=== PATIENT | female | born 1980 | race Caucasian/White ===

== ENCOUNTER 2019-01-12 18:38 | Emergency (ER) | payer OTHER ==
[~2019-01-12] VITALS: Ht 152.4 cm; Wt 63.5 kg
[2019-01-12] MEDS ORDERED: SODIUM CHLORIDE 0.9% 1000ML 1,000 ML IV STA ×2 (18:45)
[2019-01-12] MEDS ORDERED: METHYLPREDNISOLONE SOD SUCC 125 MG/2ML VIAL IV STA (18:45)
[2019-01-12] MEDS ORDERED: KETOROLAC TROMETHAMINE 30 MG/ML VIAL IV NR (18:45)
[2019-01-12] MEDS ORDERED: ONDANSETRON HCL INJ 2MG/ML 2ML 2 MG/ML VIAL IV NR (18:45)
[2019-01-12 19:26] LABS: BASOPHILS # (AUTO) 0.1 (0.0-0.1); BASOPHILS % 0.4 % (0.0-1.0); EOSINOPHILS # (AUTO) 0.1 (0.0-0.4); EOSINOPHILS % 0.4 % (0.0-6.0); HEMATOCRIT 41.7 % (34.2-44.1); HEMOGLOBIN 14.3 g/dL (12.0-16.0); LYMPHOCYTES # (AUTO) 0.7 (1.0-3.2); LYMPHOCYTES % 4.5 % (18.0-39.1); MEAN CORPUSCULAR HEMOGLOBIN 31.6 pg (28-32); MEAN CORPUSCULAR HGB CONC 34.3 g/dL (31-35); MEAN CORPUSCULAR VOLUME 92.3 fL (81-99); MONOCYTES # (AUTO) 1.6 (0.2-0.8); MONOCYTES % 9.8 % (4.4-11.3); NEUTROPHILS # (AUTO) 13.9 (2.1-6.9); NEUTROPHILS % 84.5 % (38.7-80.0); PLATELET COUNT 259 x10e3/uL (140-360); RED BLOOD COUNT 4.52 x10e6/uL (3.6-5.1); RED CELL DISTRIBUTION WIDTH 12.9 % (11.7-14.4)
[2019-01-12 19:27] LABS: BILIRUBIN,URINE NEGATIVE (NEGATIVE); CLARITY,URINE CLEAR (CLEAR); COLOR,URINE YELLOW (YELLOW); KETONES,URINE NEGATIVE (NEGATIVE); LEUKOCYTE ESTERASE ,URINE SMALL (NEGATIVE); NITRITE,URINE NEGATIVE (NEGATIVE); PROTEIN,URINE DIPSTICK NEGATIVE (NEGATIVE); URINE UROBILINOGEN 0.2 mg/dL (0.2 - 1)
[2019-01-12 19:29] LABS: PREGNANCY TEST, URINE NEGATIVE (NEGATIVE)
--- NOTE | 2019-01-12 19:32 | NUR ---
rt notified of nebs
[2019-01-12 19:40] LABS: BACTERIA,URINE MANY /HPF; EPITHELIAL CELLS,URINE RARE /LPF; RBC,URINE 0-5 /HPF (0-5); WBC,URINE (MAN) 0-5 /HPF (0-5)
[2019-01-12 19:47] LABS: ALANINE AMINOTRANSFERASE 46 IU/L (0-55); ALBUMIN 3.6 g/dL (3.5-5.0); ALKALINE PHOSPHATASE 68 IU/L (40-150); ANION GAP 17.4 mmol/L (8-16); BLOOD UREA NITROGEN 13 mg/dL (7-26); BUN/CREATININE RATIO 16 (6-25); CALCIUM 9.3 mg/dL (8.4-10.2); CARBON DIOXIDE 24 mmol/L (22-29); CHLORIDE 100 mmol/L (98-107); CREATINE KINASE 62 IU/L (29-168); CREATININE, SERUM 0.81 mg/dL (0.57-1.11); EST GLOMERULAR FILTRATION RATE > 60 ML/MIN (60-); GLUCOSE 111 mg/dL (74-118); POTASSIUM 3.4 mmol/L (3.5-5.1); SODIUM 138 mmol/L (136-145)
[2019-01-12] MEDS: IPRATROPIUM BROMIDE 0.02% 2.5 ML NEB NEB STA ×2 (20:15→20:30)
[2019-01-12] MEDS: ALBUTEROL SULF 0.083% NEB SOLN 3 ML NEB NEB STA ×2 (20:15→20:30)
--- NOTE | 2019-01-12 20:24 | Diagnostic Imaging Report ---
EXAMINATION: CHEST 2 VIEWS INDICATION: Back pain when breathing, history of asthma, vomiting ^ORDER PLACED BY MD ^Y COMPARISON: None FINDINGS: PA and lateral views TUBES and LINES: None. LUNGS: Lungs are well inflated. Small focus of airspace disease in the posterior left lower lobe PLEURA: No pleural effusion or pneumothorax. HEART AND MEDIASTINUM: The cardiomediastinal silhouette is unremarkable. BONES AND SOFT TISSUES: No focal osseous lesions. Soft tissues are unremarkable. UPPER ABDOMEN: No free air under the diaphragm. IMPRESSION: Small focus of airspace disease in the posterior left lower lobe suggestive of infiltrate or atelectasis. Signed by: Dr. Lenny Monroe MD on 01/12/2019 8:21 PM
[2019-01-12 20:27] LABS: LYMPHOCYTES % (MANUAL) 6 % (19-48); MONOCYTES % (MANUAL) 6 % (3.4-9.0); NEUTROPHILS % (MANUAL) 87 % (40-74); PLATELET ESTIMATE ADEQUATE; PLATELET MORPHOLOGY COMMENT NORMAL; RBC MORPHOLOGY COMMENT NORMAL
[2019-01-12] MEDS ORDERED: CEFTRIAXONE SOD 1 GM VIAL IV ONE (20:45)
[2019-01-12] MEDS ORDERED: DIATRIZOATE MEGL/DIATRIZOA SOD 30 ML BTL PO ONE (20:46)
--- NOTE | 2019-01-12 20:48 | NUR ---
NEBS GOING AT THIS TIME
[2019-01-12] MEDS ORDERED: CEFTRIAXONE SOD 1 GM/NS 50 ML 50 ML IV ONE (20:53)
[2019-01-12] MEDS ORDERED: DYMISTA NASAL S23 GM (21:05)
[2019-01-12] MEDS ORDERED: MONTELUKAST SOD10 MG PO (21:05)
[2019-01-12] MEDS ORDERED: ALBUTEROL2.5 MG/3 M NEB (21:05)
[2019-01-12] MEDS ORDERED: NEXIUM20 MG PO (21:05)
[2019-01-12] MEDS ORDERED: CETIRIZINE HCL10 MG PO (21:05)
[2019-01-12] MEDS ORDERED: SPIRIVA INH (21:05)
[2019-01-12] MEDS ORDERED: BREO ELLIPTA INH (21:05)
[2019-01-12] MEDS ORDERED: JUNEL1 EAC1 PO (21:05)
[2019-01-12] MEDS ORDERED: HYDROCODONE/APAP 10MG-325MG TAB PO ONE (21:45)
== END 2019-01-12 21:55 | disposition home or self-care (01) ==
LOC: ER 18:38
DX: R05 Cough (principal); J15.9 Unspecified bacterial pneumonia; R11.2 Nausea with vomiting, unspecified; J45.909 Unspecified asthma, uncomplicated
CPT/HCPCS: 36415; 71046; 80053; 81001; 81025; 82550; 82553; 84484; 85025; 94640; 96374; 96375; 99284; J0696; J1885; J2405; J2930; J7030

== ENCOUNTER 2021-10-27 11:30 | Emergency (ER) | payer OTHER ==
[~2021-10-27] VITALS: Ht 152.4 cm; Wt 63.5 kg
[~2021-10-27 11:30] MED LIST: ALBUTEROL2.5 MG/3 M NEB; BREO ELLIPTA INH; CETIRIZINE HCL10 MG PO; DYMISTA NASAL S23 GM; JUNEL1 EAC1 PO; MONTELUKAST SOD10 MG PO; NEXIUM20 MG PO; SPIRIVA INH
[2021-10-27] MEDS ORDERED: SODIUM CHLORIDE 0.9% 1000ML 1,000 ML IV STA (11:47)
[2021-10-27 11:55] LABS: BASOPHILS # (AUTO) 0.1 (0.0-0.1); BASOPHILS % 1.2 % (0.0-1.0); EOSINOPHILS # (AUTO) 0.1 (0.0-0.4); EOSINOPHILS % 2.7 % (0.0-6.0); HEMATOCRIT 42.6 % (34.2-44.1); HEMOGLOBIN 14.2 g/dL (12.0-16.0); LYMPHOCYTES # (AUTO) 1.6 (1.0-3.2); LYMPHOCYTES % 32.7 % (18.0-39.1); MEAN CORPUSCULAR HEMOGLOBIN 29.3 pg (28-32); MEAN CORPUSCULAR HGB CONC 33.3 g/dL (31-35); MEAN CORPUSCULAR VOLUME 87.8 fL (81-99); MONOCYTES # (AUTO) 0.7 (0.2-0.8); MONOCYTES % 15.1 % (4.4-11.3); NEUTROPHILS # (AUTO) 2.4 (2.1-6.9); NEUTROPHILS % 48.1 % (38.7-80.0); PLATELET COUNT 288 x10e3/uL (140-360); RED BLOOD COUNT 4.85 x10e6/uL (3.6-5.1)
[2021-10-27] MEDS ORDERED: ONDANSETRON HCL INJ 2MG/ML 2ML 2 MG/ML VIAL IV PRN (12:00)
[2021-10-27 12:01] LABS: BACTERIA,URINE RARE /HPF; CLARITY,URINE SL CLOUDY (CLEAR); COLOR,URINE YELLOW (YELLOW); EPITHELIAL CELLS,URINE FEW /LPF; KETONES,URINE >=160 (NEGATIVE); LEUKOCYTE ESTERASE ,URINE NEGATIVE (NEGATIVE); MUCUS,URINE FEW (RARE); NITRITE,URINE NEGATIVE (NEGATIVE); PROTEIN,URINE DIPSTICK 1+ (NEGATIVE); URINE UROBILINOGEN 1 mg/dL (0.2 - 1)
[2021-10-27 12:22] LABS: ALBUMIN 3.3 g/dL (3.5-5.0); ALBUMIN/GLOBULIN RATIO 0.7 (0.8-2.0); ANION GAP 16.5 mmol/L (8-16); CALCIUM 9.4 mg/dL (8.4-10.2); CREATININE, SERUM 0.83 mg/dL (0.57-1.11); POTASSIUM 3.5 mmol/L (3.5-5.1)
[2021-10-27] MEDS ORDERED: DICYCLOMINE HCL20 MG PO (12:27)
[2021-10-27 12:31] VITALS: BP 127/84
[2021-10-28] MEDS ORDERED: PREDNISONE5 MG PO (12:41)
[2021-10-28] MEDS ORDERED: SIMPONI50 MG/0.1 INJ (12:41)
[2021-10-28] MEDS ORDERED: LEVOCETIRIZINE D5 MG PO (12:42)
[2021-10-28] MEDS ORDERED: ARAVA20 MG PO (12:42)
[2021-10-28] MEDS ORDERED: NABUMETONE500 MG PO (12:43)
[2021-10-28] MEDS ORDERED: VIT B12 PO (12:43)
[2021-10-28] MEDS ORDERED: PROBIOTIC & AC1 EACH PO (12:43)
[2021-10-28] MEDS ORDERED: MULTI-VITAMIN1 EACH PO (12:43)
[2021-10-30] MEDS ORDERED: ONDANSETRON ODT4 MG PO (11:06)
== END 2021-10-27 12:40 | disposition home or self-care (01) ==
LOC: ER 11:47
DX: R10.30 Lower abdominal pain, unspecified (principal); R11.2 Nausea with vomiting, unspecified; R19.7 Diarrhea, unspecified; K21.9 Gastro-esophageal reflux disease without esophagitis; J45.909 Unspecified asthma, uncomplicated
CPT/HCPCS: 36415; 80053; 81001; 83690; 84702; 85025; 93005; 99284; J2405; J7030

== ENCOUNTER → 2021-10-30 | Day surgery (SDC) | payer OTHER ==
[~2021-10-30] MED LIST changes: +ARAVA20 MG PO; +DICYCLOMINE HCL20 MG PO; +FENTANYL CITRATE/PF 100MCG/2 ML INJ ONE; +LEVOCETIRIZINE D5 MG PO; +LIDOCAINE HCL 2% LOCAL INJ 5 ML SDV VIAL INJ ONE; +METOCLOPRAMIDE HCL 10 MG/2ML VIAL ONE; +MIDAZOLAM HCL 2 MG/2 ML VIAL ONE; +MULTI-VITAMIN1 EACH PO; +NABUMETONE500 MG PO; +ONDANSETRON ODT4 MG PO; +PREDNISONE5 MG PO; +PROBIOTIC & AC1 EACH PO; +PROPOFOL IV EMULSION 10 MG/ML 20 ML VIAL ONE; +SIMPONI50 MG/0.1 INJ; +VIT B12 PO
== END | disposition home or self-care (01) ==
LOC: OR 09:42
PROVIDERS: ATTEND Internal Medicine Gastroenterology
DX: K44.9 Diaphragmatic hernia without obstruction or gangrene (principal); K29.70 Gastritis, unspecified, without bleeding; K20.90 Esophagitis, unspecified without bleeding; R19.7 Diarrhea, unspecified; Z71.3 Dietary counseling and surveillance; K82.8 Other specified diseases of gallbladder; M06.9 Rheumatoid arthritis, unspecified; I50.9 Heart failure, unspecified; J45.909 Unspecified asthma, uncomplicated; F41.9 Anxiety disorder, unspecified; Z88.6 Allergy status to analgesic agent; Z01.812 Encounter for preprocedural laboratory examination; Z20.822 Contact with and (suspected) exposure to COVID-19; Z79.899 Other long term (current) drug therapy; Z68.28 Body mass index [BMI] 28.0-28.9, adult
CPT/HCPCS: 43239; C9113; J2001; J2250; J2704; J2765; J3010; U0002